=== PATIENT | female | born 1955 | race Caucasian/White ===

== ENCOUNTER 2017-08-13 18:03 | Emergency (ER) | payer BC ==
[2017-08-13 18:09] VITALS: BP 143/56
--- NOTE | 2017-08-13 18:24 | EDM.PDOC ---
ED HPI GENERAL MEDICAL PROBLEM - General Chief Complaint: Lower Extremity Injury/Pain Stated Complaint: sciatica pain Time Seen by Provider: 08/13/17 18:15 Source of Information: Reports: Patient, Family (), Old Records ([facility] chart/EMR) History Limitations: Reports: No Limitations - History of Present Illness INITIAL COMMENTS - FREE TEXT/NARRATIVE: Patient was brought to the emergency room via private automobile by her for evaluation of exacerbation of her chronic left-sided sciatica with radiation of her discomfort to her left foot. No history of leg weakness, recent injury, neurological deficits, etc. with stable peripheral neuropathy/ paresthesias. Patient did take 1500 mg of Tylenol earlier this morning with little relief. She does have baclofen and oxycodone at home, however she has not been taking any of these medications secondary to relative ineffectiveness in recent months. She also has not used any ibuprofen or other NSAIDs. Symptoms started about 3-4 days ago when she woke up with additional bilateral knee pain and moderate control of her arthritis in the last few days. No recent history of abdominal pain, heartburn, nausea, diarrhea, melena, gross hematochezia, or any food intolerance, including fatty foods, etc.. The patient denies any chest pain/pressure, heart flutter, dizziness, orthostasis, orthopnea, diaphoresis, paresthesias, recent decreased exercise tolerance, or any other anginal-type symptoms. The patient also denies any recent fever, cough, wheezing, dyspnea, etc.. Note that the patient did drive from the [facility] in [place] earlier today with no history of leg swelling, calf pain, etc. No history of UTI symptoms, colic, hematuria, dysuria, etc. Onset: Gradual Onset Date: 08/10/17 Onset Time: 10:00 Duration: Getting Worse Quality: Reports: Same as Previous Episode, Stabbing Severity: Severe Improves with: Reports: Rest Worsens with: Reports: Movement Context: Reports: Other (As above) Associated Symptoms: Denies: Confusion, Chest Pain, Diaphoresis, Fever/Chills, Headaches, Loss of Appetite, Malaise, Nausea/Vomiting, Seizure, Shortness of Breath, Syncope, Weakness Treatments DAT INSTRUCTOR: Reports: Acetaminophen Left Leg Pain Score (Numeric/FACES): 10 - Related Data Allergies Allergy/AdvReac Type Severity Reaction Status Date / Time No Known Allergies Allergy Verified 08/13/17 18:10 Home Meds: Home Meds Hydrochlorothiazide 25 mg PO DAILY 01/28/14 [History] Bacillus Coagulans [Digestive Advantage] 1 each PO 0800 08/13/17 [History] Biotin 5 mg PO 1800 08/13/17 [History] Calcium Carbonate/Vitamin D3 [Calcium 600 + Vit D 400 Softgl] 1 each PO DAILY [History] ClonazePAM [KlonoPIN] 0.5 mg PO BEDTIME 08/13/17 [History] Colesevelam HCl [Welchol] 4 tab PO DAILY 08/13/17 [History] Cyanocobalamin/Folic Acid [Vitamin C12-Sapfr Acid] 1 each PO 1800 08/13/17 [ History] Cyclobenzaprine [Flexeril] 10 mg PO TID PRN #30 tablet 08/13/17 [Rx] FLUoxetine HCl [Prozac] 60 mg PO DAILY 08/13/17 [History] Lactase [Lactaid] 2 tab PO TIDMEALS 08/13/17 [History] Pantoprazole Sodium 40 mg PO 1800 08/13/17 [History] busPIRone [Buspar] 10 mg PO DAILY 08/13/17 [History] oxyCODONE HCl/Acetaminophen [oxyCODONE-Acetaminophen 2.5-325] 3 each PO ASDIRECTED PRN 08/13/17 [History] Past Medical History HEENT History: Reports: Allergic Rhinitis, Cataract, Impaired Vision, Other ( See Below). Denies: Glaucoma, Hard of Hearing, Macular Degeneration, Retinal Detachment Other HEENT History: Patient wears reading glasses, beginning cataract of the right eye, borderline allergic rhinitis with eustachian tube dysfunction Cardiovascular History: Reports: Arrhythmia, Heart Murmur, High Cholesterol, Hypertension, Other (See Below). Denies: Afib, Aneurysm, Blood Clots/VTE/DVT, CAD, Heart Failure, DE, PVD, Syncope Other Cardiovascular History: Complete right bundle branch block, history of intermittent mild borderline. aortic valve stenosis and left ventricular hypertrophy with echocardiogram results as below; dyslipidemia Respiratory History: Reports: None. Denies: Asthma, COPD, Intubation, Difficult , Intubation, Previous, PE, Pneumothorax, Sleep Apnea, TB Gastrointestinal History: Reports: Celiac Disease, Cholelithiasis, Diverticulosis, Gastritis, GERD, GI Bleed, Helicobacter Pylori, Hiatal Hernia, Irritable Bowel Syndrome, PUD, Other (See Below). Denies: Bowel Obstruction, Chronic Constipation, Chronic Diarrhea, Colon Polyp, Fecal Incontinence, Hepatitis, Inflammatory Bowel Disease, Jaundice, Pancreatitis Other Gastrointestinal History: Previously treated H. pylori infection, patient denies history of previous GI bleeds, IBS, and celiac disease despite medical records, no evidence by a hiatal hernia by EGD on 01/28/14, lactose intolerance Genitourinary History: Reports: Urinary Incontinence. Denies: Acute Renal Failure, Chronic Renal Insuffiency, Renal Calculus, STD, UTI, Recurrent CLARK DRIVER History: Reports: Fibroids, . Denies: Dysfunctional Uterine Bleeding, Endometriosis, Polycystic Ovaries : 2 Para: 2 (Full term without complications during pregnancies or deliveries) LMP (Approximate): Menopausal (Menopause at age 38) Musculoskeletal History: Reports: Arthritis, Fracture, Osteoarthritis, Osteoporosis, Other (See Below). Denies: Amputation, Back Pain, Chronic, Gout, RA, SLE Other Musculoskeletal History: Right wrist fracture at about age 30, degenerative disc disease, calcaneal spurs, history of plantar fasciitis requiring surgery as below Neurological History: Reports: Headaches, Chronic, Neuropathy, Peripheral. Denies: Cerebral Aneurysms, Concussion, CVA, Head Trauma, Migraines, MS, Parkinson's, Seizure, TIA Psychiatric History: Reports: Anxiety, Depression. Denies: Abuse, Victim of, ADHD, Addiction, Psych Hospitalization(s), PTSD, Suicide Attempt, Suicidal Ideation Endocrine/Metabolic History: Reports: Diabetes, Type II, Osteopenia, Osteoporosis, Other (See Below). Denies: Diabetes, Type I, Hypothyroidism, IDDM Other Endocrine/Metabolic History: Borderline diabetes mellitus currently diet controlled Hematologic History: Reports: None. Denies: Anemia, Blood Transfusion(s), Iron Deficiency Immunologic History: Reports: Other (See Below). Denies: AIDS, HIV, SLE Other Immunologic History: Lactose intolerance Oncologic (Cancer) History: Reports: Cervix, Other (See Below). Denies: Basal Cell Carcinoma, Breast, Hodgkin's Lymphoma, Leukemia, Lymphoma, Malignant Melanoma, Non-Hodgkin's Lymphoma, Squamous Cell Carcinoma, Uterine Other Oncologic History: cervical dysplasia 1 with treatment as below Dermatologic History: Reports: None. Denies: Eczema, Psoriasis - Infectious Disease History Infectious Disease History: Reports: C-Difficile (Recurrent), Chicken Pox, Measles. Denies: Meningitis, Mononucleosis, MRSA, Mumps, Pertussis (Whooping Cough), Rheumatic Fever, Rubella, Scarlet Fever, Shingles, TB, VRE - Past Surgical History Head Surgeries/Procedures: Reports: None HEENT Surgical History: Denies: Adenoidectomy, Cataract Surgery, Eye Surgery, Laser Surgery, LASIK, Myringotomy w Tube(s), Naso-Sinus Surgery, Oral Surgery, Tonsillectomy Cardiovascular Surgical History: Reports: None. Denies: Varicose, Vascular Surgery Respiratory Surgical History: Reports: None. Denies: Thoracentesis GI Surgical History: Reports: Cholecystectomy, Colonoscopy, EGD, Other (See Below). Denies: Appendectomy, Hernia, Abdominal, Hernia, Inguinal, Hernia Repair/Other, Polypectomy Other GI Surgeries/Procedures: Last EGD and colonoscopy in 2014 with previous EGD on 01/28/14, EGD and colonoscopy on 09/07/10 and 02/28/06, laparoscopic cholecystectomy in 2001 Female Surgical History: Reports: Hysterectomy, Salpingo-Oophorectomy, Tubal Ligation, Other (See Below). Denies: Breast Biopsy, D&C, Oophorectomy Other Female Surgeries/Procedures: Bladder suspension/repair in about 2012, complete hysterectomy including bilateral salpingo-oophorectomy in 2003 with fibroids noted but no history of dysfunctional uterine bleeding, bilateral tubal ligation at age 38, electrocautery of cervical dysplasia in the ? Endocrine Surgical History: Reports: None. Denies: Thyroid Biopsy Neurological Surgical History: Reports: None. Denies: C-Spine, Discectomy, Laminectomy, Lumbar Spine, Scoliosis, Spinal Fusion, Vertebroplasty Musculoskeletal Surgical History: Reports: Other (See Below). Denies: Arthroscopic Procedure, Carpal Tunnel, Ganglion Cyst, Joint Replacement, ORIF, Shoulder Surgery Other Musculoskeletal Surgeries/Procedures:: Plantar tendon release secondary to fasciitis in the right foot in 2006 Oncologic Surgical History: Reports: None Dermatological Surgical History: Reports: None - Past Imaging History Past Imaging History: Reports: Cardiac Echo (Last echocardiogram on 11/13/16 with ejection fraction of 6065 percent and results as above with previous echocardiogram on 02/11/14), CAT Scan (CT of the chest with contrast on 10/26/15, CT of the abdomen and pelvis on 11/24/09 and 09/24/07, CT of the head and maxillofacial region on 12/26/07), DEXA Scan (Last DEXA scan on 01/14/17 with multiple previous previous evaluation including on 02/14/15), Mammogram (Last mammogram 10/19/16), Stress Testing (Negative Cardiolite stress test on 02/11/14) , Ultrasound (Abdominal ultrasound on 04/15/14), Upper GI X-Ray/Series (Upper GI on 02/07/06) Social & Family History - Family History Cardiac: Reports: Pulmonary Hypertension, Other (See Below) Other Cardiac Family History: son with pulmonary hypertension secondary to trauma - Tobacco Use Smoking Status *Q: Former Smoker Tobacco Use Within Last Twelve Months: No Years of Tobacco use: 7 Packs/Tins Daily: 0.1 (Between ages 16 and 23 with average use of one pack per week) Used Tobacco, but Quit: No Smoking Cessation Information Provided To Patient: No Second Hand Smoke Exposure: No Second Hand Smoke Education Provided: No - Caffeine Use Caffeine Use: Reports: Soda (1 soda per day). Denies: Coffee, Energy Drinks, Tea - Alcohol Use Alcohol Use History: No Days Per Week of Alcohol Use: 0 (No previous DWIs, problems with alcohol abuse, etc.) Alcohol Use in Last Twelve Months: No - Recreational Drug Use Recreational Drug Use: No Drug Use in Last 12 Months: No Recreational Drug Type: Denies: Amphetamines (Speed), Cocaine, Heroin, Inhalants (Glues, Solvents, Aerosols), LSD (Acid), Marijuana/Hashish, Methamphetamine - Living Situation & Occupation Living situation: Reports: (1974, 2 children), with Family ( and son) Occupation: Employed ([employer]) Review of Systems - Review of Systems Review Of Systems: ROS reveals no pertinent complaints other than HPI. ED EXAM, GENERAL - Physical Exam Exam: See Below Exam Limited By: No Limitations General Appearance: Alert, WD/WN, No Apparent Distress, Anxious (Mild) Head: Atraumatic, Normocephalic Neck: Normal Inspection, Supple, Non-Tender, Full Range of Motion. No: Lymphadenopathy (L), Lymphadenopathy (R), Thyromegaly Respiratory/Chest: No Respiratory Distress, Lungs Clear, Normal Breath Sounds, No Accessory Muscle Use, Chest Non-Tender. No: Pleural Rub, Retractions Cardiovascular: Normal Peripheral Pulses, Regular Rate, Rhythm, No Edema, No Gallop, No JVD, No Murmur, No Rub. No: Gallop/S3, Gallop/S4, Friction Rub Peripheral Pulses: 2+: Radial (L), Radial (R) GI/Abdominal: Normal Bowel Sounds, Soft, Non-Tender, No Organomegaly, No Distention, No Abnormal Bruit, No Mass, Other (Obese). No: Guarding (Female) Exam: Deferred Rectal (Female) Exam: Deferred Back Exam: Full Range of Motion, Muscle Spasm (Mild to moderate palpation pain and additional mild paravertebral muscle spasms in the left lower lumbar region extending into the left buttocks), Paraspinal Tenderness (As above). No: CVA Tenderness (L), CVA Tenderness (R), Vertebral Tenderness Extremities: Normal Inspection, Normal Range of Motion, Non-Tender, No Pedal Edema, Normal Capillary Refill. No: Gin's Sign Neurological: Alert, Oriented, CN II-XII Intact, Normal Cognition, Normal Gait, No Motor/Sensory Deficits Psychiatric: Anxious (Mild). No: Depressed Mood Skin Exam: Stud(s) (Nasalright), Tattoo(s) (Multiple). No: Diaphoretic, Ecchymosis, Wound/Incision Course - Vital Signs Last Recorded V/S: Last Vital Signs Temp 36.4 C 08/13/17 18:03 Pulse 71 08/13/17 18:03 Resp 20 08/13/17 18:03 BP 143/56 H 08/13/17 18:03 Pulse Ox 100 08/13/17 18:03 Vital Signs - 24 hr 08/13/17 18:03 Temperature [ 36.4 C Oral] Pulse, 71 Peripheral [ Right Pulse Oximetry] Respiratory 20 Rate Blood Pressure 143/56 H [Right Upper Arm] O2 Sat by Pulse 100 Oximetry - Orders/Labs/Meds Orders: Active Orders 24 hr Category Date Time Status Obtain Past Medical Record [OM.PC] Routine Oth 08/13/17 18:43 Ordered Labs: None Meds: Medications Discontinued Medications Generic Name Dose Route Start Last Admin Trade Name Freq PRN Reason Stop Dose Admin Ketorolac Tromethamine 60 mg 08/13/17 18:43 08/13/17 18:46 Toradol IM 08/13/17 18:44 60 mg ONETIME ONE Administration Methylprednisolone Acetate 80 mg 08/13/17 18:42 08/13/17 18:46 Depo-Medrol IM 08/13/17 18:43 80 mg ONETIME ONE Administration - Radiology Interpretation Free Text/Narrative:: None Departure - Departure Time of Disposition: 19:30 Disposition: Home, Self-Care 01 Condition: Good Clinical Impression: Low back pain, Osteoarthritis, Hypertension, Peptic reflux disease, Dyslipidemia, Diabetes mellitus, Mixed anxiety depressive disorder - Discharge Information Prescriptions: Cyclobenzaprine [Flexeril] 10 mg PO TID PRN #30 tablet PRN Reason: Spasms Instructions: Back Pain, Adult Forms: ED Department Discharge, ED Return to Work/School Form Additional Instructions: 1. Follow up with your regular provider in 10-14 days as needed, if symptoms persist. 2. Tylenol 650 mg by mouth every 4 hours and/or OTC ibuprofen 2-3 tabs by mouth every 6 hours with food as directed./needed. Next dose of ibuprofen in 6 hours as needed secondary to medications given in the emergency room 3. BenGay or equivalent, heating pad, and/or ice packs as directed. 4. Activity restrictions as discussed 5. Work excuse- See Form 6. Sedation precautions with Flexeril as discussed 7. Okay to continue with date night caregiver 8. Okay to increase your pantoprazole to twice a day basis when taking multiple doses of ibuprofen - Problem List & Annotations (1) Low back pain SNOMED Code(s): 478653712 Code(s): M54.5 - LOW BACK PAIN Status: Acute Priority: High Annotation/ Comment:: Exacerbation of her chronic low back pain and left-sided sciatica with no recent history of injury, etc. as above. IM Depo-Medrol and IM Toradol given in the emergency room. Various therapeutic options were discussed with the patient with change from baclofen to Flexeril secondary to ineffectiveness previous medication. She was also advised to discontinue her narcotic pain medications, which she has not really been using. Work excuse provided. Activity restrictions, etc. discussed. She has been using a cane since onset of the above symptoms for extra-support, which she may continue to use Qualifiers: Chronicity: acute Back pain laterality: left Sciatica presence: with sciatica Sciatica laterality: sciatica of left side Qualified Code(s): M54.42 - Lumbago with sciatica, left side (2) Osteoarthritis SNOMED Code(s): 828834715 Code(s): M19.90 - UNSPECIFIED OSTEOARTHRITIS, UNSPECIFIED SITE Status: Chronic Priority: Medium Annotation/Comment:: Somewhat under moderate control recently including bilateral knee pain, etc. Continue to observe closely by regular provider. Symptomatic relief as per discharge instructions Qualifiers: Osteoarthritis location: multiple joints Osteoarthritis type: primary Qualified Code(s): M15.0 - Primary generalized (osteo)arthritis (3) Hypertension SNOMED Code(s): 88153527 Code(s): I10 - ESSENTIAL (PRIMARY) HYPERTENSION Status: Chronic Priority : Medium Annotation/Comment:: Stable by patient history. Continue to observe closely by regular providers Qualifiers: Hypertension type: essential hypertension Qualified Code(s): I10 - Essential (primary) hypertension (4) Diabetes mellitus SNOMED Code(s): 54708618 Code(s): E11.9 - TYPE 2 DIABETES MELLITUS WITHOUT COMPLICATIONS Status: Chronic Priority: Medium Annotation/Comment:: Currently diet controlled Qualifiers: Diabetes mellitus type: type 2 Diabetes mellitus complication status: without complication Diabetes mellitus prison insulin use: without tooling mechanic use Qualified Code(s): E11.9 - Type 2 diabetes mellitus without complications (5) Dyslipidemia SNOMED Code(s): 580698394 Code(s): E78.5 - HYPERLIPIDEMIA, UNSPECIFIED Status: Chronic Priority: Medium Annotation/Comment:: Under medical therapy (6) Mixed anxiety depressive disorder SNOMED Code(s): 355654969 Code(s): F41.8 - OTHER SPECIFIED ANXIETY DISORDERS Status: Chronic Priority: Medium Annotation/Comment:: Currently under medical therapy and stable by patient history (7) Peptic reflux disease SNOMED Code(s): 90480534 Code(s): K21.9 - GASTRO-ESOPHAGEAL REFLUX DISEASE WITHOUT ESOPHAGITIS Status: Chronic Priority: Medium Annotation/Comment:: Stable by patient history - Problem List Review Problem List Initiated/Reviewed/Updated: Yes - My Orders Last 24 Hours: My Active Orders 08/13/17 18:43 Obtain Past Medical Record [OM.PC] Routine - Assessment/Plan Last 24 Hours: My Active Orders 08/13/17 18:43 Obtain Past Medical Record [OM.PC] Routine Assessment:: As above Plan: As above. Extensive precautions were given to the patient and her , who are in agreement with the treatment plan. See Patient Instructions for further treatment and plan.
[2017-08-13] MEDS ORDERED: methylPREDNISolone Acetate 80 MG/ML SDV IM ONE (18:42)
[2017-08-13] MEDS ORDERED: Ketorolac 60 MG/2 ML SDV IM ONE (18:43)
== END 2017-08-13 19:30 | disposition home or self-care (01) ==
LOC: LL.ED 18:03
DX: M54.5 Low back pain (principal); M15.0 Primary generalized (osteo)arthritis; I10 Essential (primary) hypertension; K21.9 Gastro-esophageal reflux disease without esophagitis; E78.5 Hyperlipidemia, unspecified; E11.9 Type 2 diabetes mellitus without complications; F41.8 Other specified anxiety disorders; Z87.891 Personal history of nicotine dependence
CPT/HCPCS: 96372; 99283; J1040; J1885